=== PATIENT | female | born 1990 | race Two or more races ===

== ENCOUNTER 2018-08-24 05:22 | Emergency (ER) | payer SELFPAY ==
[~2018-08-24] VITALS: Ht 167.6 cm; Wt 63.5 kg
[2018-08-24 06:30] LABS: Urine Pregnacy Test Negative (Negative)
[2018-08-24 06:43] LABS: Amphetamine Screen, Urine NEGATIVE (NEGATIVE); Barbiturate Scree,Urine NEGATIVE (NEGATIVE); Benzodiazephine Screen, Urine NEGATIVE (NEGATIVE); Cannabinoid Screen, Urine NEGATIVE (NEGATIVE); Cocaine Screen, Urine NEGATIVE (NEGATIVE); Opiate Scree,Urine NEGATIVE (NEGATIVE); Phencyclidine Screen, Urine NEGATIVE (NEGATIVE)
[2018-08-24] MEDS ORDERED: LIDOCAINE 1% HCL (LOCAL ANESTH.) INJ 20ML MDV IJ ONE (08:45)
[2018-08-24 08:58] VITALS: BP 120/63
[2018-08-24] MEDS ORDERED: KETOROLAC TROMETH 30 MG/ML 1ML VIAL IV ONE (09:00)
== END 2018-08-24 09:17 | disposition home or self-care (01) ==
LOC: ER 05:22 → EDBD 05:22 → ER 09:16
DX: S01.01XA Laceration without foreign body of scalp, initial encounter (principal); S16.1XXA Strain of muscle, fascia and tendon at neck level, initial encounter; V43.52XA Car driver injured in collision with other type car in traffic accident, initial encounter; Y93.89 Activity, other specified; Y99.8 Other external cause status; Y92.410 Unspecified street and highway as the place of occurrence of the external cause
CPT/HCPCS: 12002; 36415; 70450; 71250; 72125; 73030; 74176; 80307; 80320; 81025; 94761; 96374; 99284; J1885; J2001

== ENCOUNTER 2018-08-31 08:57 | Emergency (ER) | payer SELFPAY ==
[~2018-08-31] VITALS: Ht 160 cm; Wt 63.5 kg
[2018-08-31 09:03] VITALS: BP 121/69
== END 2018-08-31 09:24 | disposition home or self-care (01) ==
LOC: ER 08:58
DX: S01.01XD Laceration without foreign body of scalp, subsequent encounter (principal); X58.XXXD Exposure to other specified factors, subsequent encounter

== ENCOUNTER 2021-11-07 14:25 | Emergency (ER) | payer MEDICAID, OTHER ==
[~2021-11-07] VITALS: Ht 157.5 cm; Wt 68.0 kg
[2021-11-07] MEDS ORDERED: KETOROLAC TROMETH 60MG/2ML VIAL IM ONE (17:30)
[2021-11-07] MEDS ORDERED: CYCL-837 PO (17:30)
[2021-11-07] MEDS ORDERED: IBUP800T27 PO (17:30)
[2021-11-07 17:54] VITALS: BP 121/60
== END 2021-11-07 17:55 | disposition home or self-care (01) ==
LOC: ER 14:25
DX: M54.42 Lumbago with sciatica, left side (principal); X50.1XXA Overexertion from prolonged static or awkward postures, initial encounter; Y93.89 Activity, other specified; Y92.69 Other specified industrial and construction area as the place of occurrence of the external cause; Y99.8 Other external cause status
CPT/HCPCS: 96372; 99283; J1885

== ENCOUNTER 2021-12-09 15:30 | Emergency (ER) | payer OTHER ==
[~2021-12-09] VITALS: Ht 160 cm; Wt 63.5 kg
[~2021-12-09 15:30] MED LIST: CYCL-837 PO; IBUP800T27 PO
[2021-12-09 15:41] VITALS: BP 111/80
== END 2021-12-09 17:21 | disposition home or self-care (01) ==
LOC: ER 15:30
DX: S01.511A Laceration without foreign body of lip, initial encounter (principal); S50.11XA Contusion of right forearm, initial encounter; Y04.2XXA Assault by strike against or bumped into by another person, initial encounter; Y93.89 Activity, other specified; Y92.89 Other specified places as the place of occurrence of the external cause; Y99.8 Other external cause status
CPT/HCPCS: 12011; 70486; 73090

== ENCOUNTER 2022-11-10 00:33 | Emergency (ER) | payer BC, OTHER ==
[~2022-11-10] VITALS: Ht 160 cm; Wt 65.0 kg
[2022-11-10 00:47] VITALS: BP 132/83
== END 2022-11-10 01:29 | disposition home or self-care (01) ==
LOC: ER 00:33 → EEVIPCON 00:33 → ER 01:29
DX: M25.462 Effusion, left knee (principal); M25.562 Pain in left knee